=== PATIENT | male | born 1960 | race Caucasian/White ===

== ENCOUNTER 2018-09-10 01:05 | Outpatient (CLI) | payer OTHER, SELFPAY ==
--- NOTE | 2018-09-10 14:30 | DI.CT_ITS ---
SYMPTOMS/DIAGNOSIS: CHRONIC SINUS PAIN, NOT BETTER WITH ANTIBIOTICS/STEROIDS, J32.9 CT SCAN OF THE SINUSES: Multiple contiguous axial images through the sinuses were obtained. Sagittal and coronal reformatted images were evaluated on the Siemens workstation. Comparison CT brain is 01/24/15. The frontal sinuses are clear. There is mild mucosal thickening seen in the ethmoid air cells bilaterally, the sphenoid sinuses and maxillary sinuses bilaterally. No fluid levels are seen. The mastoid air cells are well pneumatized. The calvarium is grossly unremarkable. The orbits and retroorbital soft tissues appear grossly unremarkable. The nasal septum is predominantly midline. The turbinates are unremarkable, as are the ostiomeatal complexes. IMPRESSION: Findings of mild chronic sinusitis. No air-fluid levels are present.
== END 2018-09-10 01:25 ==
PROVIDERS: PCP Nurse Practitioner Family; Visit Provider Nurse Practitioner
DX: J32.9 Chronic sinusitis, unspecified (principal)
CPT/HCPCS: 70486

== ENCOUNTER 2019-01-07 01:22 | Outpatient (CLI) | payer OTHER, SELFPAY ==
[2019-01-07 08:40] LABS: Anion Gap 6.9 mmol/L (3-11); BUN 12 mg/dL (7-18); CO2 28.1 mmol/L (21.0-32.0); CREATININE 1.06 mg/dL (0.70-1.30); Calcium 8.8 mg/dL (8.5-10.1); Chloride 105 mmol/L (98-107); Cholesterol 179 mg/dL (50-200); Glucose 95 mg/dL (70-100); HDL Cholesterol 51 mg/dL (40-60); LDL CHOLESTEROL 112 mg/dL (<100); Potassium 4.5 mmol/L (3.5-5.1); Sodium 140 mmol/L (136-145); Triglyceride 118 mg/dL (30-150)
== END 2019-01-07 01:42 ==
PROVIDERS: PCP Nurse Practitioner; Visit Provider Nurse Practitioner
DX: Z13.1 Encounter for screening for diabetes mellitus (principal); E78.5 Hyperlipidemia, unspecified
CPT/HCPCS: 36415; 80048; 80061; 83721

== ENCOUNTER 2019-07-26 09:31 | Outpatient (CLI) | payer OTHER, SELFPAY ==
--- NOTE | 2019-07-26 09:30 | DI.RAD_ITS ---
EXAM: XR CHEST 2V PA LATERAL INDICATION: cough, R05, wheezing, R06.2, asthma with acute exacerbation, J45.901. COMPARISON: CHEST 2 VIEWS PA,LAT from 12/05/2016 TECHNIQUE: 2D digital imaging was performed. FINDINGS: Heart size is normal. The aorta is slightly tortuous but normal in diameter. The lungs clear throu ghout. There are no visible emphysematous or fibrotic changes. No focal infiltrate or effusion is s een. There are degenerative changes in the thoracic spine a stable mild anterior wedging in the midt horacic region. IMPRESSION: No acute abnormality.
== END 2019-07-26 09:51 ==
PROVIDERS: PCP Nurse Practitioner; Visit Provider Nurse Practitioner
DX: R05 Cough (principal); R06.2 Wheezing; J45.901 Unspecified asthma with (acute) exacerbation
CPT/HCPCS: 71046

== ENCOUNTER 2020-01-18 01:10 | Outpatient (CLI) | payer OTHER, SELFPAY ==
[2020-01-18 08:53] LABS: ALT 31 U/L (16-63); AST 21 U/L (15-37); Albumin 3.9 g/dL (3.4-5.0); Alkaline Phosphatase 70 U/L (46-116); BUN 13 mg/dL (7-18); Bilirubin, Total 0.6 mg/dL (0.2-1.0); CREATININE 0.94 mg/dL (0.70-1.30); Calcium 9.2 mg/dL (8.5-10.1); Calculated LDL 137 mg/dL (<100); Chloride 104 mmol/L (98-107); Cholesterol 207 mg/dL (<200); Glucose 99 mg/dL (74-106); HDL Cholesterol 58 mg/dL (40-60); Sodium 141 mmol/L (136-145); Triglyceride 63 mg/dL (<150)
== END 2020-01-18 01:30 ==
PROVIDERS: PCP Nurse Practitioner; Visit Provider Nurse Practitioner
DX: E78.5 Hyperlipidemia, unspecified (principal)
CPT/HCPCS: 36415; 80053; 80061

== ENCOUNTER 2020-05-29 00:29 | Outpatient (CLI) | payer OTHER, SELFPAY ==
--- NOTE | 2020-05-29 | DI.RAD_ITS ---
EXAM: XR KNEE RT 4V+ CLINICAL HISTORY: PERIODIC RT KNEE PAIN,. TECHNIQUE: 2D digital imaging was performed. COMPARISON: No exams were available for comparison FINDINGS: Mild degenerative changes are seen in the right knee characterized by periarticular spurring the medi al femoral tibial joint and the patellofemoral joint. The joint spaces are otherwise well maintained . The bones are intact and normally mineralized. The soft tissues are unremarkable. IMPRESSION: Mild degenerative changes of the right knee. DATA REPOSITORY: RADIATION DOSE DELIVERED:
== END 2020-05-29 00:49 ==
PROVIDERS: PCP Nurse Practitioner; Visit Provider Chiropractor Orthopedic
DX: M17.11 Unilateral primary osteoarthritis, right knee (principal)
CPT/HCPCS: 73564

== ENCOUNTER 2020-09-21 15:19 | Outpatient (REF) | payer OTHER, SELFPAY ==
[2020-09-22 21:38] LABS: COVID-19 RT-PCR UVMMC Result Negative (Negative)
== END 2020-09-21 15:39 ==
LOC: LBN 15:19
PROVIDERS: PCP Nurse Practitioner; Visit Provider Student in an Organized Health Care Education/Training Program
DX: Z11.52 Encounter for screening for COVID-19 (principal)
CPT/HCPCS: U0003

== ENCOUNTER 2021-02-15 02:49 | Outpatient (CLI) | payer OTHER, SELFPAY ==
[2021-02-15 07:34] LABS: MCH 30.4 pg (27.0-33.0); MCHC 32.6 % (32.0-36.0); MCV 93.3 fL (80-95); MPV 11.1 fL (8.0-11.0); Platelet Count 185 10^3/uL (130-400); RBC 4.61 10^6/uL (4.36-5.78); RDW 13.2 % (11.8-14.1); RDW-SD 45.3 fL; WBC 5.73 10^3/uL (4.4-10.8)
[2021-02-15 09:07] LABS: ALT 22 U/L (16-63); AST 22 U/L (15-37); Albumin 3.8 g/dL (3.4-5.0); Alkaline Phosphatase 73 U/L (46-116); Anion Gap 4.2 mmol/L (3-11); BUN 16 mg/dL (7-18); Bilirubin, Total 0.8 mg/dL (0.2-1.0); CO2 32.8 mmol/L (21.0-32.0); CREATININE 0.9 mg/dL (0.70-1.30); Calcium 9.4 mg/dL (8.5-10.1); Calculated LDL 118 mg/dL (<100); Chloride 106 mmol/L (98-107); Cholesterol 190 mg/dL (<200); Glucose 97 mg/dL (74-106); HDL Cholesterol 64 mg/dL (40-60); Sodium 143 mmol/L (136-145); Total Protein 6.7 g/dL (6.4-8.2); Triglyceride 42 mg/dL (<150)
== END 2021-02-15 02:50 | disposition home or self-care (01) ==
LOC: LBO 02:49
PROVIDERS: PCP Nurse Practitioner; Visit Provider Nurse Practitioner
DX: E78.5 Hyperlipidemia, unspecified (principal)
CPT/HCPCS: 36415; 80053; 80061; 85027

== ENCOUNTER 2021-10-04 16:04 | Outpatient (REF) | payer OTHER, SELFPAY ==
[2021-10-06 11:12] LABS: COVID-19 RT-PCR UVMMC Result Negative (Negative)
== END 2021-10-04 16:05 | disposition home or self-care (01) ==
LOC: LBN 16:04
PROVIDERS: PCP Nurse Practitioner; Visit Provider Student in an Organized Health Care Education/Training Program
DX: Z20.822 Contact with and (suspected) exposure to COVID-19 (principal)
CPT/HCPCS: U0003

== ENCOUNTER 2022-02-21 03:54 | Outpatient (CLI) | payer OTHER, SELFPAY ==
[2022-02-21 10:59] LABS: ALT 24 U/L (16-63); AST 24 U/L (15-37); Albumin 4.1 g/dL (3.4-5.0); Alkaline Phosphatase 74 U/L (46-116); Anion Gap 7.7 mmol/L (3-11); BUN 14 mg/dL (7-18); CO2 28.3 mmol/L (21.0-32.0); CREATININE 0.9 mg/dL (0.70-1.30); Calcium 9.1 mg/dL (8.5-10.1); Calculated LDL 105 mg/dL (<100); Chloride 106 mmol/L (98-107); Cholesterol 185 mg/dL (<200); Glucose 97 mg/dL (74-106); HDL Cholesterol 75 mg/dL (40-60); Potassium 4.1 mmol/L (3.5-5.1); Sodium 142 mmol/L (136-145); Total Protein 7.2 g/dL (6.4-8.2); Triglyceride 27 mg/dL (<150)
== END 2022-02-21 03:55 | disposition home or self-care (01) ==
LOC: LBO 03:54
PROVIDERS: PCP Nurse Practitioner; Visit Provider Nurse Practitioner
DX: E78.5 Hyperlipidemia, unspecified (principal)
CPT/HCPCS: 36415; 80053; 80061

== ENCOUNTER 2022-10-03 02:29 | Outpatient (CLI) | payer OTHER, SELFPAY ==
[2022-10-03 14:38] LABS: HCT 43.6 % (40.0-50.0); HGB 14.4 g/dL (13.5-17.5); MCH 30.3 pg (27.0-33.0); MCV 92 fL (80-95); MPV 10.6 fL (8.0-11.0); Platelet Count 237 10^3/uL (130-400); RBC 4.75 10^6/uL (4.36-5.78); RDW 12.9 % (11.8-14.1); RDW-SD 43.8 fL; WBC 7.65 10^3/uL (4.4-10.8)
[2022-10-03 15:50] LABS: TSH (W/Ref FT4) 2.04 uIU/mL (0.36-3.74)
[2022-10-07 16:19] LABS: Testosterone, Total 1020 ng/dL (240-950)
== END 2022-10-03 02:30 | disposition home or self-care (01) ==
LOC: LBO 02:29
PROVIDERS: PCP Nurse Practitioner; Visit Provider Nurse Practitioner
DX: E04.1 Nontoxic single thyroid nodule (principal); E78.5 Hyperlipidemia, unspecified; N52.9 Male erectile dysfunction, unspecified
CPT/HCPCS: 36415; 84403; 85027; 84443

== ENCOUNTER 2023-02-20 01:28 | Outpatient (CLI) | payer OTHER, SELFPAY ==
[2023-02-20 09:40] LABS: Abs Immature Grans 0.02 10^3/uL (0.0-0.06); Absolute Basophil Count 0.05 10^3/uL (0.0-0.2); Absolute Eosinophil Count 0.18 10^3/uL (0.0-0.7); Absolute Lymphocyte Count 1.57 10^3/uL (1.2-3.4); Absolute Monocyte Count 0.68 10^3/uL (0.1-0.8); Absolute Neutrophil Count 3.78 10^3/uL (1.2-6.7); Basophils % 0.8; Eosinophils % 2.9; HCT 43.6 % (40.0-50.0); HGB 14.4 g/dL (13.5-17.5); Immature Grans % 0.3; MCH 30.6 pg (27.0-33.0); MCV 93 fL (80-95); Monocytes % 10.8; Neutrophils % 60.2; Platelet Count 236 10^3/uL (130-400); RBC 4.71 10^6/uL (4.36-5.78); RDW 13.2 % (11.8-14.1); WBC 6.28 10^3/uL (4.4-10.8)
[2023-02-20 10:46] LABS: Vitamin D 25 Total 98.8 ng/mL (30-100)
[2023-02-20 10:51] LABS: ALT 27 U/L (16-63); AST 24 U/L (15-37); Albumin 3.9 g/dL (3.4-5.0); Alkaline Phosphatase 71 U/L (46-116); Anion Gap 6.2 mmol/L (3-11); BUN 13 mg/dL (7-18); Bilirubin, Total 1.2 mg/dL (0.2-1.0); CO2 30.8 mmol/L (21.0-32.0); CREATININE 0.8 mg/dL (0.70-1.30); Calcium 9.2 mg/dL (8.5-10.1); Calculated LDL 108 mg/dL (<100); Chloride 105 mmol/L (98-107); Cholesterol 185 mg/dL (<200); Estimated GFR 98.83 (mL/min/1.73m2); Glucose 90 mg/dL (74-106); HDL Cholesterol 72 mg/dL (40-60); Potassium 4.2 mmol/L (3.5-5.1); Sodium 142 mmol/L (136-145); TSH (W/Ref FT4) 2.01 uIU/mL (0.36-3.74); Total Protein 7.5 g/dL (6.4-8.2); Triglyceride 27 mg/dL (<150); Vitamin B12 528 pg/mL (193-986)
[2023-02-20 19:10] LABS: PSA, Screening 4.4 ng/mL (<=4.5)
[2023-02-26 16:02] LABS: Testosterone, Free 17.1 ng/dL (3.67-13.9); Testosterone, Total 1310 ng/dL (240-950)
== END 2023-02-20 01:29 | disposition home or self-care (01) ==
PROVIDERS: PCP Nurse Practitioner; Visit Provider Nurse Practitioner
DX: E55.9 Vitamin D deficiency, unspecified (principal); E78.5 Hyperlipidemia, unspecified; E04.1 Nontoxic single thyroid nodule; J45.909 Unspecified asthma, uncomplicated; J32.9 Chronic sinusitis, unspecified; N52.9 Male erectile dysfunction, unspecified; Z12.5 Encounter for screening for malignant neoplasm of prostate; Z79.899 Other long term (current) drug therapy; Z87.891 Personal history of nicotine dependence
CPT/HCPCS: 36415; 80053; 80061; 82306; 84153; 84402; 84403; 82607; 84443; 85025

== ENCOUNTER 2024-02-03 01:32 | Outpatient (CLI) | payer OTHER, SELFPAY ==
[2024-02-03 09:29] LABS: ALT 32 U/L (16-63); AST 28 U/L (15-37); Albumin 4.2 g/dL (3.4-5.0); Alkaline Phosphatase 76 U/L (46-116); Anion Gap 7.6 mmol/L (3-11); BUN 12 mg/dL (7-18); Bilirubin, Total 1.4 mg/dL (0.2-1.0); CO2 31.4 mmol/L (21.0-32.0); CREATININE 0.9 mg/dL (0.70-1.30); Calcium 9.6 mg/dL (8.5-10.1); Calculated LDL 101 mg/dL (<100); Chloride 104 mmol/L (98-107); Cholesterol 202 mg/dL (<200); Estimated GFR 94.78 (mL/min/1.73m2); Glucose 110 mg/dL (74-106); HDL Cholesterol 93 mg/dL (40-60); Potassium 4.1 mmol/L (3.5-5.1); Sodium 143 mmol/L (136-145); Total Protein 7.8 g/dL (6.4-8.2); Triglyceride 44 mg/dL (<150)
[2024-02-03 18:18] LABS: PSA, Screening 4.9 ng/mL (<=4.5)
== END 2024-02-03 01:33 | disposition home or self-care (01) ==
LOC: LBO 01:33
PROVIDERS: PCP Nurse Practitioner; Visit Provider Nurse Practitioner Gerontology
DX: R39.9 Unspecified symptoms and signs involving the genitourinary system (principal); E78.5 Hyperlipidemia, unspecified
CPT/HCPCS: 36415; 80053; 80061; 84153

== ENCOUNTER 2024-02-17 05:17 | Outpatient (CLI) | payer OTHER, SELFPAY ==
[2024-02-21 11:45] LABS: Testosterone, Total 1200 ng/dL (240-950)
== END 2024-02-17 05:18 | disposition home or self-care (01) ==
LOC: LBO 05:17
PROVIDERS: PCP Nurse Practitioner; Visit Provider Nurse Practitioner Gerontology
DX: N52.8 Other male erectile dysfunction (principal); R97.20 Elevated prostate specific antigen [PSA]; R39.89 Other symptoms and signs involving the genitourinary system; R86.1 Abnormal level of hormones in specimens from male genital organs
CPT/HCPCS: 36415; 84403

== ENCOUNTER 2024-07-23 10:37 | Outpatient (CLI) | payer OTHER, SELFPAY ==
[2024-07-23 18:45] LABS: PSA, Diagnostic 3.9 ng/mL (<=4.5)
== END 2024-07-23 10:38 | disposition home or self-care (01) ==
LOC: LBO 10:38
PROVIDERS: PCP Nurse Practitioner; Visit Provider Nurse Practitioner Gerontology
DX: R97.20 Elevated prostate specific antigen [PSA] (principal)
CPT/HCPCS: 36415; 84153

== ENCOUNTER 2024-08-31 13:34 | Outpatient (CLI) | payer OTHER, SELFPAY ==
--- NOTE | 2024-08-31 12:00 | DI.RAD_ITS ---
Exam(s) XR CERVICAL SP COMP W FLEX/EXT EXAM: XR CERVICAL SP COMP W FLEX/EXT CLINICAL HISTORY: Severe pain after chiro adjust, neck pain, M54.2 cervicalgia. TECHNIQUE: 2D digital imaging was performed. Seven views were performed. Additional flexion and ex tension views. COMPARISON: CR CERV SP WITH OBL FLEX/EXT from 01/24/2015 FINDINGS: BONES: No fracture or destructive lesion. Vertebral bodies are unremarkable. Facet degenerative morejon ges are present. No mild neural foraminal narrowing on the right at C4-5 and C6-7. Left neural for aminal narrowing at C5-6 and C6-7. DISKS: Mild narrowing of the C3-4 disc space. Mild narrowing of the C 5 6 and C6-7 disc spaces. Ost eophytes are noted from C3 through C6. ALIGNMENT: Slight degenerative anterolisthesis at C5-6. no subluxation with flexion or extension. T he odontoid and atlantoaxial articulations are normal. SOFT TISSUE: Normal. The lung apices are clear. IMPRESSION: Degenerative disc changes and facet degenerative changes. DATA REPOSITORY: RADIATION DOSE DELIVERED:
== END 2024-08-31 13:54 ==
PROVIDERS: PCP Nurse Practitioner; Visit Provider Nurse Practitioner
DX: M54.2 Cervicalgia (principal)
CPT/HCPCS: 72052

== ENCOUNTER 2025-01-28 00:13 | Outpatient (CLI) | payer OTHER, MEDICARE, SELFPAY ==
--- NOTE | 2025-01-28 06:30 | DI.MRI_ITS ---
Exam(s) MR CERVICAL SPINE WO EXAM: MR CERVICAL SPINE WO CLINICAL HISTORY: neck pain, arm weakness,DDD,M54.2,M50.30,R29.898 TECHNIQUE: Multiplanar multisequence MRI of the cervical spine was performed without intravenous con trast. COMPARISON: CR XR CERVICAL SP COMP W FLEX/EXT from 08/31/2024 FINDINGS: BONES: Vertebral body heights are maintained. Alignment is normal. Bone marrow signal intensity is wi thin normal limits. CERVICAL CORD: Craniovertebral junction is unremarkable. The cervical cord is normal size and signal intensity. SOFT TISSUES: Unremarkable. C2-3: No disc herniation or bulge is identified. No evidence of neural foraminal narrowing. No signi ficant central canal stenosis. C3-4: Mild loss of disc height. Endplate osteophytes and mild posterior disc bulging. Facet degener ative changes. Mild bilateral neural foraminal narrowing. No significant central canal stenosis. C4-5: Mild disc bulging. Small endplate osteophytes. Facet degenerative changes. Moderate bilatera lneural foraminal narrowing. No significant central canal stenosis. C5-6: Mild loss of disc height. Circumferentially projecting disc osteophytes. Facet degenerative c hanges.Moderate left and mild right neural foraminal narrowing. No significant central canal stenosis . C6-7: Mild disc bulging. Facet degenerative changes. Moderate right neural foraminal narrowing. No significant central canal stenosis. C7-T1: No disc herniation or bulge is identified. No evidence of neural foraminal narrowing. No signi ficant central canal stenosis. IMPRESSION: Multilevel endplate osteophytes and facet degenerative changes cause combine to produce neural forami nal narrowing as above. No disc herniation or central canal stenosis at any level. DATA REPOSITORY:
--- NOTE | 2025-01-28 06:30 | DI.MRI_ITS ---
Exam(s) MR THORACIC SPINE WO EXAM: MR THORACIC SPINE WO CLINICAL HISTORY: back pain, severe DDD CT,M54.9,M51.34. TECHNIQUE: Multiplanar multisequence MRI of the Thoracic spine was performed. COMPARISON: CT CT CHEST WO from 07/23/2024 FINDINGS: Bones: There is slight anterior wedging the T7 through T9 vertebral bodies. There are prominent endp late osteophytes mainly projecting anteriorly and laterally. There is some narrowing of the anterio r aspect of the disc spaces. There is minimal disc bulging. There is no evidence of disc herniation at any level. The marrow signal is normal with the exception of degenerative signal changes noted a t the endplates at T8-9 through T10-11. There are Schmorl's nodes at these levels. There is no john tral canal stenosis at any level. There is accentuation of the normal thoracic kyphosis. Cord: The thoracic cord is normal size and signal intensity. No intrinsic cord lesion is present. Soft tissues: Normal. IMPRESSION: Degenerative disc changes with prominent endplate osteophytes are noted throughout the thoracic spine , having the appearance of DISH. There is no evidence of disc herniation, central canal stenosis or significant neural foraminal narrowing at any level. No acute compression fractures. DATA REPOSITORY:
== END 2025-01-28 00:33 ==
PROVIDERS: PCP Nurse Practitioner; Visit Provider Nurse Practitioner
DX: M51.34 Other intervertebral disc degeneration, thoracic region; R29.898 Other symptoms and signs involving the musculoskeletal system; M50.322 Other cervical disc degeneration at C5-C6 level
CPT/HCPCS: 72141; 72146

== ENCOUNTER 2025-02-01 02:33 | Outpatient (CLI) | payer OTHER, SELFPAY ==
[2025-02-01 19:31] LABS: PSA, Diagnostic 4.5 ng/mL (<=4.5)
[2025-02-05 15:50] LABS: Testosterone, Total 1090 ng/dL (240-950)
== END 2025-02-01 02:34 | disposition home or self-care (01) ==
PROVIDERS: PCP Nurse Practitioner; Visit Provider Nurse Practitioner Gerontology
DX: R39.9 Unspecified symptoms and signs involving the genitourinary system (principal); R97.20 Elevated prostate specific antigen [PSA]
CPT/HCPCS: 36415; 84403; 84153

== ENCOUNTER 2025-02-23 17:34 | Outpatient (REF) | payer OTHER, MEDICARE, SELFPAY ==
[2025-03-25 13:30] LABS: Fungus Smear No Fungi Seen
== END 2025-02-23 17:35 | disposition home or self-care (01) ==
LOC: LBN 17:34
PROVIDERS: PCP Nurse Practitioner; Visit Provider Nurse Practitioner
DX: L60.9 Nail disorder, unspecified (principal)
CPT/HCPCS: 87101; 87206

== ENCOUNTER 2025-03-30 10:10 | Outpatient (CLI) | payer OTHER, MEDICARE, SELFPAY ==
--- NOTE | 2025-03-30 09:30 | DI.RAD_ITS ---
Exam(s) XR SHOULDER RT COMPLETE 2+V EXAM: XR SHOULDER RT COMPLETE 2+V CLINICAL HISTORY: right shoulder pain. TECHNIQUE: 2D digital imaging was performed of the right shoulder. Two images were obtained. Axillary and Grashey views were obtained. COMPARISON: No exams were available for comparison FINDINGS: BONES: No acute fracture is present. No bony destructive lesion is seen. JOINTS: No dislocation present. There are degenerative changes seen at the acromioclavicular joint. Mild degenerative changes are seen at the glenohumeral joint with a small spur at the inferior aspect of the humeral head. SOFT TISSUE: Normal. IMPRESSION: Degenerative changes of the right shoulder. DATA REPOSITORY: RADIATION DOSE DELIVERED:
== END 2025-03-30 10:11 | disposition home or self-care (01) ==
LOC: DIORS 10:10
PROVIDERS: PCP Nurse Practitioner; Visit Provider Physician Assistant
DX: S46.211A Strain of muscle, fascia and tendon of other parts of biceps, right arm, initial encounter (principal)
CPT/HCPCS: 73030

== ENCOUNTER 2025-03-30 11:55 | Outpatient (CLI) | payer OTHER, SELFPAY ==
--- NOTE | 2025-03-30 11:30 | DI.MRI_ITS ---
Exam(s) MR UPPER JOINT RT WO EXAM: MR UPPER JOINT RT WO CLINICAL HISTORY: PROXIMAL BICEPS RUPTURE S46.211. TECHNIQUE: Multiplanar multisequence MRI was performed. COMPARISON: CR XR SHOULDER RT COMPLETE 2+V from 03/30/2025 FINDINGS: The examination is limited due to patient motion artifact. BONES: There is no fracture or contusion pattern. JOINTS: There are mild degenerative changes seen at the acromioclavicular joint. The glenohumeral joint is normal. There is a small amount of fluid in the joint space which is within normal limits. TENDONS: Supraspinatus: There is tendinosis of the supraspinatus tendon but no evidence of a full-thickness tendon tear. There is hyperintense signal seen on the articular surface of the supraspinous tendon posteriorly which may represent a partial tear. Infraspinatus: Unremarkable. Subscapularis: Unremarkable. Teres Minor: Unremarkable. Biceps and [place]: There is a torn biceps tendon. The tendon is retracted. The retracted tendon is seen on image 1 series 4001. It can also be visualized on images 7 and 8 series 7001. The tendon lies 9 cm distal from the top of the humeral head. MUSCLES: The muscles show no significant fatty atrophy. GLENOID LABRUM: There is mild heterogeneity and increased signal seen in the superior labrum suspicious for tear. SOFT TISSUES: Unremarkable. LIGAMENTS: Unremarkable. OTHER: There is a tiny amount of fluid seen in the subacromial subdeltoid bursa. IMPRESSION: 1. Biceps tendon tear with retraction. The end of the tendon lies approximately 9 cm distally from the superior aspect of the humeral head along the shaft of the humerus. 2. Question of a partial articular surface tear of the supraspinatus tendon. 3. Heterogeneity and increased signal seen of the superior labrum suspicious for tear. 4. Degenerative changes at the acromioclavicular joint. DATA REPOSITORY:
== END 2025-03-30 12:15 ==
LOC: DI 11:56
PROVIDERS: PCP Nurse Practitioner; Visit Provider Student in an Organized Health Care Education/Training Program
DX: S46.211A Strain of muscle, fascia and tendon of other parts of biceps, right arm, initial encounter (principal); X58.XXXA Exposure to other specified factors, initial encounter
CPT/HCPCS: 73221

== ENCOUNTER 2025-04-01 10:12 | Day surgery (SDC) | payer OTHER, SELFPAY ==
[2025-04-01] VITALS (32 sets, daily range): BP systolic 123–169; BP diastolic 65–88; PULSE 46–67; RESP 8–25; TEMP 36.2–36.7; O2SAT 95–100; BMI 24.0
--- NOTE | 2025-04-01 07:11 | W.PM.DSUDISC ---
Date of service: 04/01/25 Discharge Plan Disposition Patient Disposition: Home Condition: Stable Discharge Details Attending Provider: Madhu Fernandez Primary Care Provider: Andre Pederson Home Meds and New Rx's Prescriptions: New naproxen 250 mg tablet 250 - 500 mg PO BID PRN (Reason: moderate pain and swelling) Qty: 40 0RF oxycodone 5 mg tablet 5 - 10 mg PO .q4-6h MDD 30 mg PRN (Reason: severe pain) Qty: 18 0RF Continued [id number]-[id number]-[id number]-C-alicia-bosw 750 mg-644 mg- 30 mg-1 mg tablet 1 tab PO DAILY cholecalciferol (vitamin D3) 50 mcg (2,000 unit) capsule 50 mcg PO DAILY ascorbate calcium (vitamin C) 500 mg tablet 500 mg PO DAILY omega-3 fatty acids 1,000 mg capsule 1,000 mg PO DAILY multivitamin Tablet 1 tab PO DAILY Prostate FLX 1 cap PO DAILY [place] 400 mg PO DAILY acetaminophen [Tylenol Extra Strength] 500 MG tablet 500 - 1,000 mg PO PRN arnica gel 1 applic Topical PRN Rx Instructions: for anti-inflammatory budesonide [Rhinocort Allergy] 32 mcg/actuation spray,non-aerosol 2 spray CATHLEEN DAILY Qty: 25.29 3RF Rx Instructions: administer into each nostril montelukast 10 mg tablet 10 mg PO DAILY Qty: 90 3RF Qvar RediHaler 40 mcg/actuation HFA aerosol breath activated 2 inh inhalation BID PRN (Reason: acute asthma exacerbations) Qty: 10.6 3RF Rx Instructions: To replace flovent (not covered by insurance)--Use during asthma flares; administer with spacer albuterol sulfate [ProAir HFA] 90 mcg/actuation HFA aerosol inhaler 1 - 2 puff Inhalation .Q4-6 H PRN (Reason: shortness of breath or wheezing) Qty: 36 12RF Rx Instructions: Dispense brand of albuterol inhaler covered by insurance Discharge Instructions Additional Instructions: Surgery: Right shoulder arthroscopy with rotator cuff repair (subscapularis), extensive debridement, subacromial decompression, and open biceps tenodesis (rupture repair) 04/01/25 Activity: For 6 weeks, you should keep your arm at your side in a neutral position at all times except for physical therapy. Do not try to lift or raise your arm using your own muscles. You should use the sling whenever you are out of the house. At home it is best to remove the sling and rest the arm on a pillow at your side or support the operative side with your other hand. You may allow the arm to dangle at your side. A physical therapy prescription will be sent electronically to begin in about 3 weeks. Standard protocol. Prescriptions: Naproxen 250 mg take 1-2 every 12 hours with a meal as needed for moderate pain Oxycodone 5 mg take 1-2 every 4-6 hours as needed for severe pain You may use qivr-ddy-fhpqjks Tylenol (acetaminophen) as needed for mild pain. These pain medications may be taken all at once or in different combinations as needed. Also, recommend Colace (docusate) as a stool softener as surgery and pain medicine cause constipation. You may try ursq-mbu-dynhfwm diphenhydramine (Benadryl) 25-50 mg nightly as a sleep aid Dressings: Remove shoulder bandage after 3 days. Leave the sticky Steri-Strips in place until they fall off or remove them after you shower. Cover the incisions with Band-Aids or leave them open to air. The biceps bandage (inside upper arm) is glued on separately. You may leave this one on a few days longer if it is difficult to remove. There is also glue underneath this bandage that can be left in place until it peels off. You may shower after 5 days. Follow-up: 10-[address] Fernandez You may take off the leg compression stockings this evening at home. You may also leave them on a few days longer if you have a history of leg swelling or edema. Let us know right away if you develop any redness, drainage, fevers, chest pain, or trouble breathing. Do not drink alcohol or drive for at least 24 hours after anesthesia. Please call the office during business hours with any questions or concerns. Discharge Orders Discharge Orders: Discharge Order (Routine); Ordered 04/01/25 Ordered By: Farida Willoughby DS: Diagnosis Discharge Diagnosis (1) Rupture of right proximal biceps tendon: Status: Acute (2) Rotator cuff tear, right: Status: Acute
--- NOTE | 2025-04-01 07:35 | ROE_ITS ---
Operative Note Operative Note PRE-OP DIAGNOSIS: Right: 1. Rotator cuff tear 2. Subacute proximal biceps rupture 3. Impingement POST-OP DIAGNOSIS: same PROCEDURE: Right: 1. Rotator cuff repair, CPT# 93542. This involved suture?only repair of the subscapularis 2. Open biceps tenodesis, CPT# 21548. This involved reattaching the ruptured and retracted long head of the biceps tendon to the proximal humerus in the sub- pectoral area of the bicipital groove at the correct tension. 3. Extensive debridement, CPT# 43715. This involved using arthroscopic hand instruments, power instruments, and radiofrequency instruments debride significant long head biceps remnant, anterior and posterior labral degenerative tearing and fraying, SLAP tearing, anterior and superior synovitis, and partial articular supraspinatus tearing working within the glenohumeral joint anteri anya, superiorly and posteriorly. 4. Subacromial decompression, CPT# 58269. This involved using arthroscopic power instruments and a radiofrequency wand to complete a bursectomy The assistant customer service manager was medically required in order to help assist in techniques above, which require positioning the arm, holding the arthroscope, and manipulating multiple instruments and sutures at the same time. This cannot be done without the help of an experienced assistant customer service manager. SURGEON: Madhu Fernandez DISC RECORDIST: Farida Willoughby ANESTHESIA TYPE: Local By Surgeon, General LMA/ETT and Primary Nerve Block Refer to Anesthesia Record ESTIMATED BLOOD LOSS: 5 PATHOLOGY: none sent COMPLICATIONS: None Patient was transported to: PACU Patient's condition: stable Implants: Arthrex: Unicortical Proximal Biceps Tenodesis Button Indications: The patient was diagnosed with the above conditions and appropriately indicated for surgical intervention. Please see complete medical record for details. Findings: Exam under anesthesia: Obvious Robert ruptured proximal biceps deformity, good range of motion, no instability Glenohumeral joint: Moderate global degenerative changes including glenoid cartilage, payne labral tearing fraying, ruptured/absent intra-articular biceps, long biceps tendon remnant to the superior labrum, degenerative subscapularis thinning and tearing, degenerative chronic?appearing supraspinatus articular sided tearing and thinning mostly mild to moderate, with more focal moderate area centrally. Subacromial space: Minimal bursitis. No impinging acromion bone spur. Intact bursal rotator cuff throughout. Procedure Description: In the operating room, general anesthesia was induced. Bilateral shoulders were examined. The patient was positioned in the beachchair position. All bony prominences were well-padded. Preoperative antibiotics were administered. The shoulder was prepped and draped in the usual sterile fashion. The correct patient, procedure, and side of the procedure were all verified prior to incision. Bupivacaine with epinephrine was infiltrated about a medium-sized longitudinal incision at the inferior margin of the pectoralis major localized over the palp able and measured retracted long head of the biceps tendon. Blunt and sharp dissection were used to expose the tendon just distal to the bicipital groove. It had to be freed from scarring and adhesions to the inferior aspect of the groove as well as the pectoralis major, which was done carefully to include the whole tendon. The tendon was brought out of the wound and kept off the skin on top of a blue towel. The correct location for sub-pectoral fixation was localized, prepped with a rasp, and then drilled with a 3.2 mm drill pin in a unicortical fashion. Using a fiber loop suture the tendon was prepped from the musculotendinous junction a few centimeters proximal. The excess tendon was amputated. The free suture ends were then passed through the unicortical button implant. The drill pin was removed and the implant was placed into the humeral intramedullary canal. The button was flipped and the sutures were tensioned bringing the tendon down to bone. Tension and fixation were then tested and found to be appropriate. The suture tails were brought on either side of the tendon and then tied compressing tendon to bone. The wound was copiously irrigated with normal saline. A moist lap was placed in the wound for later repair. There was excellent baptism of the biceps contour. Starting through the posterior portal a standard complete diagnostic arthroscopy was performed of the glenohumeral joint including inspection of the long head of the biceps, anterior and superior labrum, subscapularis tendon, supraspinatus and infraspinatus tendons, and axillary recess. The glenoid and humeral head cartilage as well as the posterior labrum were inspected from an anterior viewing portal. Significant findings and interventions noted above. The biceps tendon remnant was majority resected with scissors and then removed with a Mary Ann clamp. The remainder of the anterior through superior and posterior labrum was smoothed and contoured. The supraspinatus was lightly debrided, but did not require much work as it looked like a chronic tear articular margin with irregular pink bone exposed small area more focally centrally the supraspinatus without any injection or real fraying and was stable through probing. The subscapularis partial tearing was inspected. It did not have good excursion for repair of the chronic tearing from medial to lateral back to the lesser tuberosity. It was largely thinned superior lateral, but the defect could be closed with grasper. A rigid cannula was inserted anteriorly. The 90 lasso single portal technique was used to shuttle a suture tape circumferentially about the tendon medially and then again laterally with SMC arthroscopic knots directed anteriorly superiorly nicely closing the tendon and recreating round tendon contour. The repair tendon looked better attached to the tuberosity through motion and testing. Starting through the posterior portal, the arthroscope was directed into the subacromial space. A lateral 50 yard line lateral portal was created. A combination of power instruments and a radiofrequency ablator were used to debride bursitis anteriorly, posteriorly, and laterally as well as expose the undersurface of the acromion. The coracoacromial ligament was minimally released. The bursectomy was completed viewing laterally and working from posteriorly and the rotator cuff was thoroughly inspected with findings noted above. The shoulder was drained of arthroscopic fluid. All portal sites were copiously irrigated. These incisions were closed using 3-0 Monocryl in a buried fashion and then covered with Mastisol, Steri-Strips, Xeroform, dry gauze, and ABDs. The dressings were covered and secured with Medipore tape. Biceps subcutaneous tissue was closed using 3-0 Monocryl in a buried interrupted fashion. Skin was closed using 3-0 Monocryl in a buried subcuticular running fashion. Skin glue was applied over the incision. Mastisol was applied about the incision. The incision was covered with Telfa, gauze, and covered with a Tegaderm dressing. The operative extremity was placed into a sling for immobilization. The patient awoke from anesthesia without complication and was transferred to the recovery room in a stable condition. Date of Procedure: 04/01/25
--- NOTE | 2025-04-01 09:03 | W.ANESPRE ---
General Info Date of Service Date Performed: 04/01/25 Height: 5 ft 6 in Weight: 67.585 kg Body Mass Index (BMI): 24.0 Surgical Procedure: Operation Date: 04/01/25 12:40 Proposed Procedure Side Surgeon p Shoulder arthroscopy, debridement, decompression, ?RCR Right Madhu Fernandez MD s open biceps proximal rupture repair Madhu Fernandez MD Meds Allergies and Home Medications Allergies Allergy/AdvReac Type Severity Reaction Status Date / Time cat dander Allergy Intermediate Unknown Verified 04/01/25 10:36 cephalexin monohydrate (From Allergy Unknown Hives Verified 04/01/25 10:36 Keflex) lactose Allergy Other (See Verified 04/01/25 10:36 Comment) erythromycin base AdvReac Intermediate rash Verified 04/01/25 10:36 clarithromycin (From Biaxin) AdvReac Unknown cramps/diar Verified 04/01/25 10:36 svitlana Home Medication ?Medication ?Instructions ?Recorded acetaminophen 500 mg tablet 500 - 1,000 mg PO PRN 11/10/13 (Tylenol Extra Strength) Arnica Gel 1 applic topical PRN 03/09/15 budesonide 32 mcg/actuation nasal 2 spray intranasal DAILY #25.29 mL 02/02/20 spray (Rhinocort Allergy) ascorbate calcium (vitamin C) 500 500 mg PO DAILY 08/11/23 mg tablet cholecalciferol (vitamin D3) 50 50 mcg PO DAILY 08/11/23 mcg (2,000 unit) capsule glucosamine 750 [id number] 1 tab PO DAILY 08/11/23 no1 644 mg-C 30 mg-alicia 1 mg tablet omega-3 fatty acids 1,000 mg 1,000 mg PO DAILY 08/11/23 capsule Prostate FLX 1 cap PO DAILY for prostate and 03/03/24 normal urine flow [place] 400 mg PO DAILY 03/03/24 multivitamin 1 tab PO DAILY 03/03/24 montelukast 10 mg tablet 10 mg PO DAILY #90 tabs 09/20/24 beclomethasone dipropionate 40 2 inh inhalation BID PRN acute 03/07/25 mcg/actuation HFA breath activated asthma exacerbations #10.6 grams aerosol (Qvar RediHaler) albuterol sulfate 90 mcg/actuation 1 - 2 puff inhalation .Q4-6 H PRN 03/31/25 aerosol inhaler (ProAir HFA) shortness of breath or wheezing #36 grams Current Visit Medications: Current Medications Generic Name Dose Route Start Last Admin Trade Name Freq PRN Reason Stop Dose Admin Oxycodone HCl 0 mg 04/01/25 07:13 Oxycodone 5 Mg Tab PO 05/01/25 07:12 Q3H PRN PRN Pain PFSH Active Problems Active Problems: Problem Status Onset Code Rupture of right proximal biceps tendon Acute S46.211A Neck pain Acute M54.2 Arm pain, right Acute M79.601 Elevated PSA Acute R97.20 DISH (diffuse idiopathic skeletal hyperostosis) Acute M48.10 Elevated testosterone level in male Acute R79.89 Sensorineural hearing loss (SNHL) of both ears Acute H90.3 URI (upper respiratory infection) Acute J06.9 Stopped smoking with greater than 40 pack year history Acute Z87.891 Mixed hearing loss, bilateral Acute H90.6 Recurrent sinusitis Acute J32.9 Encounter for routine history and physical examination Acute Z00.00 Chronic sinusitis Acute J32.9 Left inguinal pain Acute R10.32 History of tobacco use Acute 09/04/15 Z87.891 Thyroid nodule Acute 02/17/15 E04.1 Moderate persistent asthma without complication Acute 12/18/16 J45.40 Mild intermittent asthma without complication Acute 09/13/15 J45.20 Hyperlipidemia, unspecified Acute 12/27/17 E78.5 Allergic rhinitis, unspecified Acute 10/25/11 J30.9 Medical History Medical History Environmental allergies COVID (~01/10/22) 06/2023 Ulcerative proctitis Asthma Allergic rhinitis Tobacco use disorder Lactose intolerance Thyroid nodule Surgical History Surgical History Hx of tonsillectomy Thyroid (04/11/15) Fine needle aspiration Dr Moreno Repair of inguinal hernia (01/14/17) left, indirect- Dr. Mclaughlin 01/2017 Right- Dr. Vasquez 2004 Tobacco Smoking/Tobacco Use Status: Former Tobacco Use Passive smoking exposure: No Second hand exposure: No Alcohol Alcohol Intake: current Alcohol intake frequency: a few times a month Substance Use Substance use: Occasionally Substance use type: does not use and marijuana Details: edibles Vital Signs and Lab Results Vital Signs Most Recent Vital Signs in EMR: Temp Pulse Resp BP Pulse Ox 36.6 C 61 16 135/84 98 04/01/25 10:27 04/01/25 10:27 04/01/25 10:27 04/01/25 10:27 04/01/25 10:27 Imaging and Studies Imaging and Studies Study information below may be from another EMR and interpreted by another provider. Please see original notes in EMR for more complete details. Echocardiogram Summary: february 2015 Summary: 1. Left ventricle: The cavity size was normal. Wall thickness was normal. Systolic function was normal. The estimated ejection fraction was 60-65%. Wall motion was normal; there were no regional wall motion abnormalities. 2. Aortic valve: Valve area: 2.4cm^2(VTI). Valve area: 2.4cm^2 (Vmax). 3. Right ventricle: The cavity size was normal. Wall thickness was normal. Systolic function was normal. 4. Right atrium: The atrium was mildly dilated. 5. Pulmonary arteries: Pulmonary systolic pressure was in the range of 25mm Hg to 35mm Hg. 6. Inferior vena cava: The vessel was normal in size; the respirophasic diameter changes were in the normal range (greater than or equal to 50%); findings are consistent with normal central venous pressure. RAP 0-5 mmHg. Carotid Artery Summary:: february 2015 CONCLUSION: No evidence of a hemodynamically significant carotid stenosis. Pulmonary Function Summary: nov 2016 IMPRESSION: Mild obstructive airways disease with no significant bronchodilator response. When this study was compared to previous one from 08/29/15, the patient has a stable FVC and mild decline in FEV-1 of a total of 130 cc. Diffusion capacity is stable when corrected to alveolar volume. Anesthesia Assessment and Plan Anesthesia History Personal History: No History of Anesthesia Complications Family History: No Family History of Anesthesia Complications Exercise Tolerance Exercise Tolerance: Metabolic Equivalents>4 Pertinent Negatives Pertinent Negatives: No Symptoms of GERD, No Major Cardiovascular Symptoms or Complaints, No Major Pulmonary Symptoms or Complaints and No History of CVA/TIA Cardiac & Pulmonary Exam Cardiac Exam: Normal S1/S2 Heart Sounds Pulmonary Exam: Clear Bilateral Breath Sounds Cardiac and Pulmonary Comment:: regular inhaler use; no recent hospitalisations for asthma Implantable Cardiac Device Does patient have a Pacemaker or an ICD?: No Airway Exam Known Difficult Airway: No Mallampati Class: 2 Mouth Opening: Normal (> 3cm) Thyromental Distance: Greater than 3 cm Facial Hair: Full Kim Neck Range of Motion: Limited ROM Neck Circumference: Normal Teeth Condition: Normal Dentition ASA Classification ASA Score: ASA 2 Emergency Case?: No NPO Status NPO Status: NPO Clears >2 hours, Solids >8 hours Anesthesia Plan Resuscitation Status: Full Code Anesthesia Technique: General Anesthesia Airway Planned: Endotracheal Tube Monitors Used: Standard Monitors Preoperative Comments:: 64 yo male for shoulder scope, bicep repair. Sig PMHx: asthma (albuterol, Qvar, Montelukast), neck pain, thyroid nodule. former smoker, occ EtOH.
[2025-04-01] MEDS: Lactated Ringers 1,000 ML 30 ML IV (11:05)
--- NOTE | 2025-04-01 11:28 | W.ANESPRE ---
General Info Date of Service Date Performed: 04/01/25 Height: 5 ft 6 in Weight: 66.3 kg Body Mass Index (BMI): 23.6 Surgical Procedure: Operation Date: 04/01/25 12:40 Proposed Procedure Side Surgeon p Shoulder arthroscopy, debridement, decompression, ?RCR Right Madhu Fernandez MD s open biceps proximal rupture repair Madhu Fernandez MD Meds Allergies and Home Medications Allergies Allergy/AdvReac Type Severity Reaction Status Date / Time cat dander Allergy Intermediate Unknown Verified 04/01/25 10:36 cephalexin monohydrate (From Allergy Unknown Hives Verified 04/01/25 10:36 Keflex) lactose Allergy Other (See Verified 04/01/25 10:36 Comment) erythromycin base AdvReac Intermediate rash Verified 04/01/25 10:36 clarithromycin (From Biaxin) AdvReac Unknown cramps/diar Verified 04/01/25 10:36 svitlana Home Medication ?Medication ?Instructions ?Recorded acetaminophen 500 mg tablet 500 - 1,000 mg PO PRN 11/10/13 (Tylenol Extra Strength) Arnica Gel 1 applic topical PRN 03/09/15 budesonide 32 mcg/actuation nasal 2 spray intranasal DAILY #25.29 mL 02/02/20 spray (Rhinocort Allergy) ascorbate calcium (vitamin C) 500 500 mg PO DAILY 08/11/23 mg tablet cholecalciferol (vitamin D3) 50 50 mcg PO DAILY 08/11/23 mcg (2,000 unit) capsule glucosamine 750 [id number] 1 tab PO DAILY 08/11/23 no1 644 mg-C 30 mg-alicia 1 mg tablet omega-3 fatty acids 1,000 mg 1,000 mg PO DAILY 08/11/23 capsule Prostate FLX 1 cap PO DAILY for prostate and 03/03/24 normal urine flow [place] 400 mg PO DAILY 03/03/24 multivitamin 1 tab PO DAILY 03/03/24 montelukast 10 mg tablet 10 mg PO DAILY #90 tabs 09/20/24 beclomethasone dipropionate 40 2 inh inhalation BID PRN acute 03/07/25 mcg/actuation HFA breath activated asthma exacerbations #10.6 grams aerosol (Qvar RediHaler) albuterol sulfate 90 mcg/actuation 1 - 2 puff inhalation .Q4-6 H PRN 03/31/25 aerosol inhaler (ProAir HFA) shortness of breath or wheezing #36 grams Current Visit Medications: Current Medications Generic Name Dose Route Start Last Admin Trade Name Kristina PRN Reason Stop Dose Admin Ringer's Solution 1,000 mls @ 30 mls/hr 04/01/25 06:00 04/01/25 11:05 IV 04/01/25 23:59 30 mls/hr INFUSION YESSY Administration Cefazolin Sodium/Dextrose 2 gm in 50 mls @ 100 mls/hr 04/01/25 06:00 Ancef Duplex IVPB 04/01/25 23:59 PREOP YESSY Tranexamic Acid/Sodium Chloride 1,000 mg in 100 mls @ 600 mls/hr 04/01/25 06:00 IVPB 04/01/25 23:59 PREOP YESSY IV Miscellaneous Supplies 1 each 04/01/25 06:00 Iv Access IV 04/01/25 23:59 DIRECTED YESSY Oxycodone HCl 0 mg 04/01/25 07:13 Oxycodone 5 Mg Tab PO 05/01/25 07:12 Q3H PRN PRN Pain Sodium Chloride 0 ml 04/01/25 06:00 Normal Saline Flush 10 Ml Syr IV 04/01/25 23:59 PRN PRN Sodium Chloride 0 ml 04/01/25 06:00 Normal Saline 10 Ml Vial IJ 04/01/25 23:59 DIRECTED PRN Sterile Water 0 ml 04/01/25 06:00 Water,Injection,Sterile 10 Ml Vial IJ 04/01/25 23:59 DIRECTED PRN PFSH Active Problems Active Problems: Problem Status Onset Code Rupture of right proximal biceps tendon Acute S46.211A Neck pain Acute M54.2 Arm pain, right Acute M79.601 Elevated PSA Acute R97.20 DISH (diffuse idiopathic skeletal hyperostosis) Acute M48.10 Elevated testosterone level in male Acute R79.89 Sensorineural hearing loss (SNHL) of both ears Acute H90.3 URI (upper respiratory infection) Acute J06.9 Stopped smoking with greater than 40 pack year history Acute Z87.891 Mixed hearing loss, bilateral Acute H90.6 Recurrent sinusitis Acute J32.9 Encounter for routine history and physical examination Acute Z00.00 Chronic sinusitis Acute J32.9 Left inguinal pain Acute R10.32 History of tobacco use Acute 12/28/15 Z87.891 Thyroid nodule Acute 02/17/15 E04.1 Moderate persistent asthma without complication Acute 12/18/16 J45.40 Mild intermittent asthma without complication Acute 09/13/15 J45.20 Hyperlipidemia, unspecified Acute 12/27/17 E78.5 Allergic rhinitis, unspecified Acute 10/25/11 J30.9 Medical History Medical History Environmental allergies COVID (~01/10/22) 06/2023 Ulcerative proctitis Asthma Allergic rhinitis Tobacco use disorder Lactose intolerance Thyroid nodule Surgical History Surgical History Hx of tonsillectomy Thyroid (04/11/15) Fine needle aspiration Dr oMreno Repair of inguinal hernia (01/14/17) left, indirect- Dr. Mclaughlin 01/2017 Right- Dr. Vasquez 2004 Tobacco Smoking/Tobacco Use Status: Former Tobacco Use Passive smoking exposure: No Second hand exposure: No Alcohol Alcohol Intake: current Alcohol intake frequency: a few times a month Substance Use Substance use: Never Substance use type: marijuana Details: edibles Vital Signs and Lab Results Vital Signs Most Recent Vital Signs in EMR: Most Recent Vital Signs Temp Pulse Resp BP Pulse Ox 36.6 C 61 16 135/84 98 04/01/25 10:27 04/01/25 10:27 04/01/25 10:27 04/01/25 10:27 04/01/25 10:27 Imaging and Studies Imaging and Studies Study information below may be from another EMR and interpreted by another provider. Please see original notes in EMR for more complete details. Echocardiogram Summary: february 2015 Summary: 1. Left ventricle: The cavity size was normal. Wall thickness was normal. Systolic function was normal. The estimated ejection fraction was 60-65%. Wall motion was normal; there were no regional wall motion abnormalities. 2. Aortic valve: Valve area: 2.4cm^2(VTI). Valve area: 2.4cm^2 (Vmax). 3. Right ventricle: The cavity size was normal. Wall thickness was normal. Systolic function was normal. 4. Right atrium: The atrium was mildly dilated. 5. Pulmonary arteries: Pulmonary systolic pressure was in the range of 25mm Hg to 35mm Hg. 6. Inferior vena cava: The vessel was normal in size; the respirophasic diameter changes were in the normal range (greater than or equal to 50%); findings are consistent with normal central venous pressure. RAP 0-5 mmHg. Anesthesia Assessment and Plan Anesthesia History Personal History: No History of Anesthesia Complications Family History: No Family History of Anesthesia Complications Exercise Tolerance Exercise Tolerance: Metabolic Equivalents>4 Implantable Cardiac Device Does patient have a Pacemaker or an ICD?: No
[2025-04-01] MEDS: ceFAZolin 2 GM/50 ML BAG IVPB (13:00)
[2025-04-01] MEDS: TRANEXAMIC ACID/SOD. CHL. 1,000 MG/100 ML BAG 600 MG IVPB (13:05)
[2025-04-01] MEDS: Bupivacaine 0.25% Pres-Free W/EPI 30 ML VIAL (15:00)
[2025-04-01] MEDS: EPINEPHrine 10 MG/10 ML ML (15:00)
[2025-04-01] MEDS: HYDROmorphone 2 MG/ML SYR IVP ×4 (15:20→15:55)
--- NOTE | 2025-04-01 15:33 | W.ANESPOSTOP ---
Postoperative Evaluation Date, Time and Location Date Performed: 04/01/25 Time Performed: 15:33 Patient Location: PACU Vital Signs Most Recent Imported Vital Signs: Most Recent Vital Signs Temp Pulse Resp BP Pulse Ox 36.6 C 51 L 15 138/82 99 04/01/25 10:27 04/01/25 15:26 04/01/25 15:26 04/01/25 15:26 04/01/25 15:26 Pain Score Most Recent Pain Score: Most Recent Pain Score Pain Level 0 04/01/25 10:27 Assessment Mental Status: Arousable with meaningful communication Airway and Respiratory Function: Patent airway with normal (patient baseline) respiratory exam Cardiovascular Function: Hemodynamically Stable Hydration Status: Adequately Hydrated Nausea & Vomiting: No Nausea or Vomiting Pain: Pain is Moderate or Severe Postoperative Pain Management: Pain being addressed with medication Peripheral Nerve Block: Patient did not receive a nerve block
== END 2025-04-01 17:20 | disposition home or self-care (01) ==
PROVIDERS: PCP Family Medicine; Visit Provider Student in an Organized Health Care Education/Training Program
PROC: (CPT 29827; principal; 2025-04-01 12:30)
PROC: (CPT 24341; 2025-04-01 12:30)
DX: S46.211A Strain of muscle, fascia and tendon of other parts of biceps, right arm, initial encounter (principal); M75.101 Unspecified rotator cuff tear or rupture of right shoulder, not specified as traumatic; M75.41 Impingement syndrome of right shoulder; X58.XXXA Exposure to other specified factors, initial encounter; G89.18 Other acute postprocedural pain; J45.909 Unspecified asthma, uncomplicated; Z87.891 Personal history of nicotine dependence
CPT/HCPCS: 23430; 29827; 29823; 29826; J0131; J0665; J0666; J0690; J1100; J1171; J1885; J2371; J2405; J2704; J3475

== ENCOUNTER 2025-04-27 03:17 | Outpatient (CLI) | payer OTHER, SELFPAY ==
[2025-04-27 12:03] LABS: Abs Immature Grans 0.04 10^3/uL (0.0-0.06); HCT 42.2 % (40.0-50.0); HGB 13.8 g/dL (13.5-17.5); Immature Grans % 0.5 %; MCH 30.3 pg (27.0-33.0); MCHC 32.7 % (32.0-36.0); MCV 93 fL (80-95); MPV 10.4 fL (8.0-11.0); Platelet Count 218 10^3/uL (130-400); RBC 4.56 10^6/uL (4.36-5.78); RDW 13.7 % (11.8-14.1); RDW-SD 46.6 fL; WBC 7.55 10^3/uL (4.4-10.8)
[2025-04-27 12:05] LABS: Glucose Negative (Negative)
[2025-04-27 12:28] LABS: Hemoglobin A1C 5.4 % (<5.7)
[2025-04-27 13:06] LABS: ALT 21 U/L (16-63); AST 22 U/L (15-37); Albumin 3.9 g/dL (3.4-5.0); Alkaline Phosphatase 63 U/L (46-116); Anion Gap 5.7 mmol/L (3-11); BUN 17 mg/dL (7-18); Bilirubin, Total 1.1 mg/dL (0.2-1.0); CO2 31.3 mmol/L (21.0-32.0); Calcium 9.1 mg/dL (8.5-10.1); Chloride 107 mmol/L (98-107); Estimated GFR 97.61 (mL/min/1.73m2); Glucose 64 mg/dL (74-106); Potassium 3.8 mmol/L (3.5-5.1); Sodium 144 mmol/L (136-145); TSH 1.22 uIU/mL (0.36-3.74); Total Protein 6.9 g/dL (6.4-8.2)
== END 2025-04-27 03:18 | disposition home or self-care (01) ==
LOC: LBO 03:17
PROVIDERS: PCP Nurse Practitioner; Referring Provider Family Medicine; Visit Provider Family Medicine
DX: E04.1 Nontoxic single thyroid nodule; R53.83 Other fatigue
CPT/HCPCS: 36415; 80053; 81003; 83036; 84443; 85025

== ENCOUNTER 2025-08-09 00:42 | Outpatient (CLI) | payer OTHER, SELFPAY ==
[2025-08-09 21:47] LABS: PSA, Screening 4.9 ng/mL (<=4.5)
== END 2025-08-09 00:43 | disposition home or self-care (01) ==
LOC: LBO 00:42
PROVIDERS: PCP Nurse Practitioner; Visit Provider Nurse Practitioner Gerontology
DX: R39.9 Unspecified symptoms and signs involving the genitourinary system (principal); R97.20 Elevated prostate specific antigen [PSA]; R79.89 Other specified abnormal findings of blood chemistry
CPT/HCPCS: 36415; 84153; 84403